=== PATIENT | female | born 1945 | race African-American/Black ===

== ENCOUNTER 2021-06-15 09:26 | Emergency (ER) | payer OTHER, MEDICARE ==
[2021-06-15 09:43] VITALS: BMI 35.2
[2021-06-15] MEDS ORDERED: DEXAMETHASONE SOD PHOSPHATE 10 MG/1 ML VIAL IVPUSH ONE (09:56)
[2021-06-15] MEDS ORDERED: SODIUM CHLORIDE 0.9% 500 ML INFUS.BAG IV ONE (09:58)
[2021-06-15] MEDS ORDERED: FAMOTIDINE 20 MG/50 ML IVPB 20 MG/50 ML MG IVPB ONE ×2 (09:58→10:09)
[2021-06-15] MEDS ORDERED: DEXAMETHASONE SOD PHOSPHATE 10 MG/1 ML VIAL ONE (10:08)
[2021-06-15] MEDS ORDERED: VERAPAMIL HCL 240 MG E.R. TABLET PO ONE (11:53)
[2021-06-15] MEDS ORDERED: HYDROCHLOROTHIAZIDE 25 MG TABLET (FP) PO ONE (11:54)
[2021-06-15] MEDS ORDERED: HYDROCHLOROTHIAZIDE 25 MG TABLET (FP) ONE (12:07)
[2021-06-15 12:39] VITALS: BP 140/85; PULSE 75; TEMP 98
== END 2021-06-15 13:12 | disposition home or self-care (01) ==
LOC: JER 09:26
PROC: 3E033GC Introduction of Other Therapeutic Substance into Peripheral Vein, Percutaneous Approach (ICD-10-PCS; principal; 2021-06-15)
PROC: 3E033GC Introduction of Other Therapeutic Substance into Peripheral Vein, Percutaneous Approach (ICD-10-PCS; 2021-06-15)
PROC: 3E033GC Introduction of Other Therapeutic Substance into Peripheral Vein, Percutaneous Approach (ICD-10-PCS; 2021-06-15)
DX: T46.4X5A Adverse effect of angiotensin-converting-enzyme inhibitors, initial encounter (principal)
CPT/HCPCS: 99284-25; J1100

== ENCOUNTER 2025-05-04 11:43 | Emergency (ER) | payer OTHER, MEDICARE ==
[2025-05-04] MEDS ORDERED: ONDANSETRON 4 MG/2 ML VIAL ONE (12:51)
[2025-05-04] MEDS: ONDANSETRON 4 MG/2 ML VIAL IVPUSH ONE (13:15)
[2025-05-04 13:16] LABS: MCHC 32.1 g/dl (32.2-35.5); MEAN CELL VOLUME 89.3 fl (79.4-94.8); MEAN PLT VOLUME 10.8 fl (9.4-12.3); RDW 15.2 % (12.4-16.6)
[2025-05-04 13:41] VITALS: RESP 18; TEMP 99.1; BMI 29.0
[2025-05-04 13:53] LABS: CO2 32.0 mmol/L (21-32); GLUCOSE,RANDOM 95.0 mg/dL (74-106)
[2025-05-04 13:56] LABS: CREATININE 0.8 mg/dL (0.55-1.3); SGOT/AST 15.0 U/L (15-37); SGPT/ALT 18.0 U/L (13-61)
[2025-05-04 13:58] LABS: TOT PROT 7.3 g/dl (6.4-8.2)
[2025-05-04 13:59] LABS: ALK PHOS 72.0 U/L (45-117)
[2025-05-04 15:11] LABS: HCV DIAGNOSTIC IN-HOUSE W/RFLX NON-REACTIVE (NONREACTIVE)
[2025-05-04 15:18] LABS: HIV INTERPRETATION NEGATIVE (NEGATIVE)
[2025-05-04 16:15] LABS: EPI CELLS 8 /uL (0-25.1); HYALINE CASTS 0 /uL (0-3.1); URINE APPEARANCE CLEAR; URINE BACTERIA 467 /uL (0-1359); URINE BILIRUBIN NEGATIVE (NEGATIVE); URINE COLOR YELLOW; URINE GLUCOSE (UA) NEGATIVE (NEGATIVE); URINE KETONE NEGATIVE (NEGATIVE); URINE LEUK ESTERASE 2+ (NEGATIVE); URINE NITRITE NEGATIVE (NEGATIVE); URINE PROTEIN NEGATIVE (NEGATIVE); URINE RBC 16 /uL (0-23.9); URINE UROBILINOGEN 0.2 mg/dL (0.2-1.0); URINE WBC 120 /uL (0-25.8)
[2025-05-04] MEDS ORDERED: CEFTRIAXONE 1 GM/50 ML BAG ONE (17:02)
[2025-05-04] MEDS: LACTATED RINGERS SOLUTION 1000 ML INFUS.BAG IV ONE (17:12)
[2025-05-04 17:35] VITALS: BP 157/86; PULSE 65
== END 2025-05-04 18:59 | disposition home or self-care (01) ==
LOC: JER 11:43
PROC: 3E03329 Introduction of Other Anti-infective into Peripheral Vein, Percutaneous Approach (ICD-10-PCS; principal; 2025-05-04)
PROC: 3E033GC Introduction of Other Therapeutic Substance into Peripheral Vein, Percutaneous Approach (ICD-10-PCS; 2025-05-04)
DX: N39.0 Urinary tract infection, site not specified (principal); R11.2 Nausea with vomiting, unspecified; R53.81 Other malaise; R53.1 Weakness
CPT/HCPCS: 36415; 74177-TC; 80053; 81003; 82962; 83690; 84484; 85027; 86803; 87086; 87389; 93005; 93010; 99285-25; Q9967